=== PATIENT | male | born 1965 ===

== ENCOUNTER 2019-02-02 07:57 | Emergency (ER) | payer OTHER, BC ==
[2019-02-02 08:16] VITALS: BP 187/91
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
== END 2019-02-02 09:54 | disposition home or self-care (01) ==
LOC: ED 07:57
DX: S16.1XXA Strain of muscle, fascia and tendon at neck level, initial encounter (principal); Z88.0 Allergy status to penicillin; Z90.89 Acquired absence of other organs; V49.59XA Passenger injured in collision with other motor vehicles in traffic accident, initial encounter; Y93.89 Activity, other specified; Y92.410 Unspecified street and highway as the place of occurrence of the external cause; Y99.8 Other external cause status